=== PATIENT | female | born 1985 | race Caucasian/White ===

== ENCOUNTER 2016-09-15 20:19 | Emergency (ER) | payer OTHER ==
[~2016-09-15] VITALS: Ht 160 cm; Wt 93.0 kg
[~2016-09-15 20:19] MED LIST: CLARITIN10 M1 PO; MOTRIN600 M1 PO; ZITHROMAX PO
== END 2016-09-15 21:12 | disposition home or self-care (01) ==
LOC: SED 20:19
DX: S91.331A Puncture wound without foreign body, right foot, initial encounter (principal); W52.XXXA Crushed, pushed or stepped on by crowd or human stampede, initial encounter; Y92.009 Unspecified place in unspecified non-institutional (private) residence as the place of occurrence of the external cause; Z23 Encounter for immunization
CPT/HCPCS: 90471; 90715; 99283